=== PATIENT | male | born 1960 | race African-American/Black ===

== ENCOUNTER → 2017-08-30 | Outpatient (CLI) | payer OTHER ==
--- NOTE | 2017-08-30 12:57 | RADIOLOGY REPORT (SQ) ---
EXAM DESCRIPTION: KNEE LEFT 4 VIEW COMPLETED DATE/TIME: 08/30/2017 12:36 pm REASON FOR STUDY: E11.9 TYPE 2 DIABETES MELLITUS WITHOUT COMPLICATIONS E11.9 TYPE 2 DIABETES MELLIT US WITHOUT COMPLICATIONS COMPARISON: None. NUMBER OF VIEWS: Four views. TECHNIQUE: AP, lateral, and both oblique radiographic images acquired of the left knee. LIMITATIONS: None. FINDINGS: MINERALIZATION: Normal. BONES: No acute fracture or dislocation. No worrisome bone lesions. Small osteophytes. JOINT: No effusion. No chondrocalcinosis. OTHER: No other significant finding. IMPRESSION: MILD DEGENERATIVE CHANGES. NO ACUTE FINDINGS. TECHNICAL DOCUMENTATION: JOB ID: [id number] [employer]- All Rights Reserved
== END ==
LOC: RAD 12:18
PROVIDERS: ATTEND Family Medicine
DX: E11.9 Type 2 diabetes mellitus without complications (principal)